=== PATIENT | male | born 1970 ===

== ENCOUNTER 2025-02-21 22:20 | Emergency (ER) | payer SELFPAY ==
[2025-02-21 22:22] VITALS: BP 133/99
[2025-02-21 22:47] LABS: Hematocrit 46.8 % (39.0-52.0); Hemoglobin 16.6 g/dL (13.0-18.0); Mean Corp Hgb Conc. 35.5 g/dL (33.0-37.0); Mean Corpuscular Volume 91.2 fL (80.0-94.0); Nucleated Red Blood Cells % 0 % (-); Platelet Count 256 10^3/uL (130-400); Red Cell Dist. Width 11.9 % (11.5-14.5)
[2025-02-21 23:09] LABS: ALT (SGPT) 42 U/L (0-50); AST (SGOT) 25 U/L (17-59); Albumin 4.5 g/dl (3.5-5.0); Alkaline Phosphatase 77 U/L (38-126); Blood Urea Nitrogen 30 mg/dl (9-20); Calcium 9.7 mg/dl (8.4-10.2); Carbon Dioxide 23 mmol/L (22-30); Chloride 106 mmol/L (98-107); Glucose 101 mg/dl (70-99); Magnesium 2.2 mg/dl (1.6-2.3); Potassium 4.2 mmol/L (3.5-5.1); Sodium 135 mmol/L (135-145); Total Protein 7.0 g/dl (6.3-8.2); eGFR > 60.00
[2025-02-21 23:21] LABS: Troponin I < 0.012 ng/ml
[2025-02-22 00:09] VITALS: BP 134/76
== END 2025-02-22 00:10 | disposition left against medical advice (07) ==
LOC: EMR 22:20
PROVIDERS: EMERGENCY PHYSICIAN Student in an Organized Health Care Education/Training Program
DX: I48.92 Unspecified atrial flutter (principal); R00.1 Bradycardia, unspecified; I48.91 Unspecified atrial fibrillation; Z53.21 Procedure and treatment not carried out due to patient leaving prior to being seen by health care provider
CPT/HCPCS: 80053; 83735; 84443; 84484; 85025; 93005